=== PATIENT | male | born 1990 | race Caucasian/White ===

== ENCOUNTER 2021-04-25 16:03 | Emergency (ER) | payer SELFPAY ==
[~2021-04-25] VITALS: Ht 167.6 cm; Wt 95.5 kg
[2021-04-25 17:34] VITALS: BP 158/87
== END 2021-04-25 17:57 | disposition home or self-care (01) ==
LOC: EMS 16:07
DX: F41.9 Anxiety disorder, unspecified (principal); Z91.013 Allergy to seafood
CPT/HCPCS: 99283

== ENCOUNTER 2021-04-29 12:39 | Emergency (ER) | payer SELFPAY ==
[~2021-04-29] VITALS: Ht 167.6 cm; Wt 90.9 kg
[2021-04-29 12:40] VITALS: BP 125/70
[2021-04-29 16:16] LABS: BASOPHILS % (AUTO) 0.4 % (0.0-2.0); EOSINOPHILS % (AUTO) 1.1 % (1.0-6.0); HEMATOCRIT 45.6 % (41-53); HEMOGLOBIN 15.6 g/dL (13.5-17.5); LYMPHOCYTES # (AUTO) 2.2 K/uL (1.0-4.8); LYMPHOCYTES % (AUTO) 26.8 % (22.0-44.0); MEAN CORPUSCULAR HGB CONC 34.2 G/dL (31.0-37.0); MEAN CORPUSCULAR VOLUME 94 fL (80-100); MONOCYTES # (AUTO) 0.5 K/uL (0.1-1.0); MONOCYTES % (AUTO) 5.9 % (2.0-9.0); NEUTROPHILS # (AUTO) 5.3 K/uL (1.8-7.7); NEUTROPHILS % (AUTO) 65.8 % (40.0-70.0); PLATELET COUNT (AUTO) 244 K/uL (150-450); RED BLOOD CELL COUNT(AUTO) 4.88 MIL/uL (4.50-5.90); RED CELL DISTRIBUTION WIDTH 13.2 % (11.5-14.5)
[2021-04-29 16:27] LABS: ANION GAP 7 mmol/L (8-16); CALCIUM, TOTAL 8.5 mg/dL (8.8-10.5); CARBON DIOXIDE 28 mmol/L (22-29); CHLORIDE 105 mmol/L (98-107); CREATININE 0.79 mg/dL (0.60-1.30); GLOMERULAR FILTR. RATE CALC > 60 mL/min (>60); GLUCOSE,RANDOM 88 mg/dL (70-110); POTASSIUM 3.7 mmol/L (3.5-5.1); SODIUM SERUM 140 mmol/L (136-145); UREA NITROGEN, BLOOD 10 mg/dL (7-18)
[2021-04-29 16:33] LABS: ALANINE AMINOTRANSFERASE 56 U/L (12-78); ALBUMIN 3.9 g/dL (3.4-5.0); ALKALINE PHOSPHATASE 60 U/L (46-116); ASPARTATE AMINOTRANSFERASE 23 U/L (15-37); BILIRUBIN,TOTAL 0.5 mg/dL (0.1-1.0); LIPASE 156 U/L (73-393); TOTAL PROTEIN, SERUM 7.9 g/dL (6.4-8.2)
== END 2021-04-29 17:16 | disposition home or self-care (01) ==
LOC: EMS 12:43
DX: R51.9 Headache, unspecified (principal); R53.1 Weakness; Z91.013 Allergy to seafood
CPT/HCPCS: 36415; 80053; 83690; 85025; 99283; G0480

== ENCOUNTER 2021-05-26 10:44 | Emergency (ER) | payer SELFPAY ==
[~2021-05-26] VITALS: Ht 167.6 cm; Wt 85.9 kg
[2021-05-26 11:10] VITALS: BP 121/70
== END 2021-05-26 13:13 | disposition home or self-care (01) ==
LOC: EMS 10:44
DX: S93.402A Sprain of unspecified ligament of left ankle, initial encounter (principal); Z91.013 Allergy to seafood; X50.1XXA Overexertion from prolonged static or awkward postures, initial encounter; Y93.89 Activity, other specified; Y92.89 Other specified places as the place of occurrence of the external cause; Y99.8 Other external cause status
CPT/HCPCS: 99283

== ENCOUNTER 2021-05-29 11:31 | Emergency (ER) | payer SELFPAY ==
[~2021-05-29] VITALS: Ht 167.6 cm; Wt 86.0 kg
[2021-05-29 12:50] VITALS: BP 126/70
== END 2021-05-29 12:50 | disposition home or self-care (01) ==
LOC: EMS 11:31
DX: Z71.1 Person with feared health complaint in whom no diagnosis is made (principal)
CPT/HCPCS: 99281; Z7502